=== PATIENT | female | born 1975 | race Caucasian/White ===

== ENCOUNTER 2016-10-16 12:50 | Emergency (ER) | payer MEDICAID ==
--- NOTE | 2016-10-16 13:10 | ER Document Report ---
ED Medical Screen (RME) - General Stated Complaint: COUGH/NAUSEA Notes: 4 days ago cough, fever, nausea, left lower chest pain worse with deep breath and cough h/o asthma, smoker I have greeted and performed a rapid initial assessment of this patient. A comprehensive ED assessment and evaluation of the patient, analysis of test results and completion of the medical decision making process will be conducted by additional ED providers. TRAVEL OUTSIDE OF THE [place] IN LAST 30 DAYS: No - Related Data Allergies/Adverse Reactions: cephalexin monohydrate [From Keflex] Allergy (Verified 10/16/16 13:09) Past Medical History Pulmonary Medical History: Reports: Hx Asthma, Hx Bronchitis, Hx Pneumonia Neurological Medical History: Reports: Hx Migraine Past Surgical History: Reports: Hx Hysterectomy - Immunizations Hx Diphtheria, Pertussis, Tetanus Vaccination: Yes
--- NOTE | 2016-10-16 13:56 | ER Document Report ---
ED Respiratory Problem - General Chief Complaint: Cough Stated Complaint: COUGH/NAUSEA Mode of Arrival: Ambulatory Information source: Patient TRAVEL OUTSIDE OF THE [place] IN LAST 30 DAYS: No - HPI Patient complains to provider of: Cough, Hurts to breath Onset: Other - 4 DAYS Duration: Continuous Quality of pain: Sharp Severity: Moderate Context: Smoker Short of Breath: Mild Chest pain/discomfort: Left - LOWER LATERAL, Worse with deep breaths Cough: Nonproductive Sputum amount: None Associated symptoms: Cough, Fever - SUBJECTIVE, Hurts to breathe Similar symptoms previously: Yes - USUALLY ONCE / YR (PNEUMONIA) Recently seen / treated by doctor: No - Related Data Allergies/Adverse Reactions: cephalexin monohydrate [From [employer]] Allergy (Verified 10/16/16 13:09) Past Medical History - General Information source: Patient - Social History Smoking Status: Current Every Day Smoker Chew tobacco use (# tins/day): No Smoking Education Provided: Yes - 1 MIN. Frequency of alcohol use: None Drug Abuse: None Lives with: Family Family History: Reviewed & Not Pertinent Patient has suicidal ideation: No Patient has homicidal ideation: No - Past Medical History Cardiac Medical History: Reports: None Pulmonary Medical History: Reports: Hx Asthma, Hx Bronchitis, Hx Pneumonia EENT Medical History: Reports: None Neurological Medical History: Reports: Hx Migraine Endocrine Medical History: Reports: None Renal/ Medical History: Reports: None. Denies: Hx Peritoneal Dialysis Malignancy Medical History: Reports: None GI Medical History: Reports: None Musculoskeltal Medical History: Reports None Psychiatric Medical History: Reports: None Past Surgical History: Reports: Hx Hysterectomy - Immunizations Hx Diphtheria, Pertussis, Tetanus Vaccination: Yes Review of Systems - Review of Systems Constitutional: No symptoms reported EENT: No symptoms reported Cardiovascular: See HPI Respiratory: See HPI Gastrointestinal: Vomiting - GAGS W/ COUGH Genitourinary: No symptoms reported Female Genitourinary: Post menopausal Musculoskeletal: No symptoms reported Skin: No symptoms reported Neurological/Psychological: No symptoms reported Physical Exam - Vital signs Vitals: Temp Pulse Resp BP Pulse Ox 98.8 F 97 16 119/74 99 10/16/16 13:11 10/16/16 13:11 10/16/16 13:11 10/16/16 13:11 10/16/16 13:11 Interpretation: Normal. No: Tachycardic, Hypoxic, Tachypneic, Febrile - General General appearance: Appears well, Alert In distress: None - HEENT Head: Normocephalic Eyes: Normal Conjunctiva: Normal Ears: Normal Nasal: Normal Mouth/Lips: Normal Mucous membranes: Normal - Respiratory Respiratory status: No respiratory distress Chest status: Nontender Breath sounds: Nonproductive cough, Rales - RARE, OVER AREA OF COMPLAINT. No: Wheezing Chest palpation: Normal - Cardiovascular Rhythm: Regular Heart sounds: Normal auscultation Murmur: No - Abdominal Inspection: Normal Distension: No distension - Back Back: Normal - Extremities General upper extremity: Normal inspection General lower extremity: Normal inspection - Neurological Neuro grossly intact: Yes Cognition: Normal Orientation: AAOx4 - Psychological Associated symptoms: Normal affect, Normal mood - Skin Skin Temperature: Warm Skin Moisture: Dry Skin Color: Normal Skin Turgor: Elastic Course - Vital Signs Vital signs: Temp Pulse Resp BP Pulse Ox 98.8 F 97 16 119/74 99 10/16/16 13:11 10/16/16 13:11 10/16/16 13:11 10/16/16 13:11 10/16/16 13:11 - Diagnostic Test Radiology reviewed: Image reviewed, Reports reviewed Radiology results interpreted by me: 10/16/16 14:07 FAINT PARENCHYMAL DENSITY IN AREA OF COMPLAINT. Discharge - Discharge Clinical Impression: Pneumonia Qualifiers: Pneumonia type: due to unspecified organism Laterality: left Lung location: lower lobe of lung Qualified Code(s): J18.1 - Lobar pneumonia, unspecified organism Condition: Stable Disposition: HOME, SELF-CARE Instructions: Pneumonia ([facility]), Stop Smoking ([facility]), Azithromycin ([facility]) Additional Instructions: REST, DRINK PLENTY OF FLUIDS. MEDS DIRECTED. STOP SMOKING. FOLLOW UP WITH YOUR PRIMARY CARE PROVIDER OR RETURN TO E.R. IF PROBLEMS. Prescriptions: Hydrocodone/Acetaminophen [Ruskin 5-325 mg Tablet] 1 tab PO Q4HP PRN #14 tablet PRN Reason: FOR PAIN OR COUGH Azithromycin [Zithromax 250 mg Tablet] 250 mg PO ASDIR PRN #6 tablet PRN Reason:
[2016-10-16 14:19] VITALS: BP 108/65
== END 2016-10-16 14:18 | disposition home or self-care (01) ==
LOC: ER 12:50
DX: J18.1 Lobar pneumonia, unspecified organism (principal); R50.9 Fever, unspecified; F17.200 Nicotine dependence, unspecified, uncomplicated
CPT/HCPCS: 71020; 99283

== ENCOUNTER 2016-12-05 16:30 | Emergency (ER) | payer OTHER ==
[2016-12-05] MEDS ORDERED: CYCLOBENZAPRINE HCL 10 MG TABLET PO ONE (17:01)
[2016-12-05] MEDS ORDERED: IBUPROFEN 800 MG TABLET PO ONE (17:01)
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
[2016-12-05 18:27] VITALS: BP 104/72
[2016-12-05] MEDS ORDERED: TRAMADOL HCL 50 MG TABLET PO ONE (18:46)
== END 2016-12-05 18:42 | disposition home or self-care (01) ==
LOC: ER 16:30
DX: M25.512 Pain in left shoulder (principal); V43.52XA Car driver injured in collision with other type car in traffic accident, initial encounter; F17.210 Nicotine dependence, cigarettes, uncomplicated; M51.36 Other intervertebral disc degeneration, lumbar region; M54.5 Low back pain; J45.909 Unspecified asthma, uncomplicated; Z87.81 Personal history of (healed) traumatic fracture
CPT/HCPCS: 72070; 99284

== ENCOUNTER 2017-03-24 23:46 | Emergency (ER) | payer OTHER ==
[2017-03-25] MEDS ORDERED: PREDNISONE 20 MG TABLET PO ONE (00:31)
[2017-03-25] MEDS ORDERED: HYDROCODONE/ACETAMINOPHEN 5-325 MG TABLET PO ONE (00:31)
--- NOTE | 2017-03-25 00:41 | ER Document Report ---
HPI - HPI Patient complains to provider of: cough, rib pain Pain Level: 5 Context: Patient is a 42-year-old female that comes emergency department for chief complaint of cough and congestion in her chest for 1 week, she reports yellow productive sputum. She denies fever. She states that she has had pneumonia before and she feels the same as when she had it last year. She reports a lot of pain in her ribs mainly on the left side with her cough. She denies chest pain otherwise. She denies vomiting, abdominal pain, shortness of breath. She continues to smoke daily. She reports past medical history of asthma. She denies any home medications. - REPRODUCTIVE LMP: na Reproductive: DENIES: : - DERM Skin Color: Normal Past Medical History - General Information source: Patient - Social History Smoking Status: Current Every Day Smoker Smoking Education Provided: Yes - <3 min Lives with: Family Family History: Reviewed & Not Pertinent Patient has suicidal ideation: No Patient has homicidal ideation: No Pulmonary Medical History: Reports: Hx Asthma, Hx Bronchitis, Hx Pneumonia Neurological Medical History: Reports: Hx Migraine Renal/ Medical History: Denies: Hx Peritoneal Dialysis Past Surgical History: Reports: Hx Hysterectomy - Immunizations Hx Diphtheria, Pertussis, Tetanus Vaccination: Yes Vertical Provider Document - CONSTITUTIONAL General Appearance: WD/WN, Mild Distress - patient has a painful cough, but otherwise she is in no distress - INFECTION CONTROL TRAVEL OUTSIDE OF THE [place] IN LAST 30 DAYS: No - HEENT HEENT: Atraumatic, Normal ENT Exam, Normocephalic - NECK Neck: Normal Inspection - RESPIRATORY Respiratory: Breath Sounds Normal, No Respiratory Distress, Other - decreased breath sounds and a few coarse sounds, no overt wheezing or rhonchi. negative: Chest Non-Tender - tender generally and mildly over left ribs generally O2 Sat by Pulse Oximetry: 98 - CARDIOVASCULAR Cardiovascular: Regular Rate, Regular Rhythm - GI/ABDOMEN Gastrointestinal: Abdomen Soft, Abdomen Non-Tender - BACK Back: Normal Inspection - MUSCULOSKELETAL/EXTREMETIES Musculoskeletal/Extremeties: MADIONICIO, FROM, Non-Tender - NEURO Level of Consciousness: Awake, Alert, Appropriate - DERM Integumentary: Warm, Dry, No Rash Course - Re-evaluation Re-evalutation: Some decreased breath sounds but no concerning findings on patient's respiratory evaluation. Occasional productive cough with some rib pain. Concerned because of patient's history of tobacco abuse and pneumonia. Patient given dose of azithromycin, prescription for this as well, patient on prednisone , giving albuterol inhaler. Chest x-ray does not show pneumonia, shows early emphysema changes. I discussed this at length with patient. Patient actually does appear rattled by this information, she states that she has already purchased items to help her quit and she will be quitting after this, her is in full support of this. I discussed follow-up, return precautions. Patient states understanding and agreement. - Vital Signs Vital signs: Temp Pulse Resp BP Pulse Ox 98.1 F 101 H 20 123/72 98 03/24/17 23:58 03/24/17 23:58 03/24/17 23:58 03/24/17 23:58 03/24/17 23:58 Discharge - Discharge Clinical Impression: Cough, Productive cough, Rib pain, Tobacco abuse Condition: Stable Disposition: HOME, SELF-CARE Additional Instructions: Your chest x-ray indicates early emphysema (a form of COPD). You must stop smoking. Take prednisone and azithromycin as directed. Use the inhaler as prescribed. Return to the ED for any concerning or worsening symptoms - difficulty breathing , fever, etc. Prescriptions: Albuterol Sulfate [Proair HFA Inhalation Aerosol 8.5 gm MDI] 2 puff IH Q4H PRN # 1 mdi PRN Reason: Azithromycin [Zithromax 250 mg Tablet] 250 mg PO ASDIR #4 tablet Prednisone 60 mg PO DAILY #15 tablet Forms: Smoking Cessation Education
--- NOTE | 2017-03-25 01:31 | RADIOLOGY REPORT (SQ) ---
EXAM DESCRIPTION: CHEST PA/LAT COMPLETED DATE/TIME: 03/25/2017 1:03 am REASON FOR STUDY: productive cough x 7 days, rib pain COMPARISON: 10/16/2016. EXAM PARAMETERS: NUMBER OF VIEWS: two views TECHNIQUE: Digital Frontal and Lateral radiographic views of the chest acquired. RADIATION DOSE: NA LIMITATIONS: none FINDINGS: LUNGS AND PLEURA: No opacities, masses or pneumothorax. No pleural effusion. Mild emphyse matous hyperinflation. MEDIASTINUM AND HILAR STRUCTURES: No masses or contour abnormalities. HEART AND VASCULAR STRUCTURES: Heart normal size. No evidence for failure. BONES: No acute findings. HARDWARE: None in the chest. OTHER: No other significant finding. IMPRESSION: No acute cardiopulmonary findings. TECHNICAL DOCUMENTATION: JOB ID: [id number] [employer]- All Rights Reserved
[2017-03-25] MEDS ORDERED: HYDROCODONE/ACETAMINOPHEN 5-325 MG 6 TAB/DSPK PO PRN (01:43)
[2017-03-25] MEDS ORDERED: AZITHROMYCIN 250 MG TABLET PO ONE (01:43)
[2017-03-25] MEDS ORDERED: ALBUTEROL SULFATE HFA (90 MCG/PUFF) 8 GM MDI (1 MDI/ER DISP) IH ONE (01:51)
[2017-03-25 02:16] VITALS: BP 116/78
== END 2017-03-25 02:17 | disposition home or self-care (01) ==
LOC: ER 23:46
DX: R05 Cough (principal); R07.81 Pleurodynia; J45.909 Unspecified asthma, uncomplicated; F17.200 Nicotine dependence, unspecified, uncomplicated; Z71.6 Tobacco abuse counseling; Z87.01 Personal history of pneumonia (recurrent)
CPT/HCPCS: 99283; 71020; J7512; J3490

== ENCOUNTER 2017-10-19 13:43 | Emergency (ER) | payer SELFPAY ==
--- NOTE | 2017-10-19 14:50 | RADIOLOGY REPORT (SQ) ---
EXAM DESCRIPTION: CHEST PA/LAT COMPLETED DATE/TIME: 10/19/2017 2:22 pm REASON FOR STUDY: cough congestion COMPARISON: Two-view chest 03/25/2017, 10/16/2016, 05/22/2014 EXAM PARAMETERS: NUMBER OF VIEWS: two views TECHNIQUE: Digital Frontal and Lateral radiographic views of the chest acquired. RADIATION DOSE: NA LIMITATIONS: none FINDINGS: LUNGS AND PLEURA: No opacities, masses or pneumothorax. No pleural effusion. MEDIASTINUM AND HILAR STRUCTURES: No masses or contour abnormalities. HEART AND VASCULAR STRUCTURES: Heart normal size. No evidence for failure. BONES: No acute findings. HARDWARE: None in the chest. OTHER: No other significant finding. IMPRESSION: NO SIGNIFICANT RADIOGRAPHIC FINDING IN THE CHEST. TECHNICAL DOCUMENTATION: JOB ID: [id number] [employer]- All Rights Reserved Reading location - IP/workstation name: [email or web address]
[2017-10-19 15:22] VITALS: BP 116/76
--- NOTE | 2017-10-19 15:27 | ER Document Report ---
ED Respiratory Problem - General Chief Complaint: Rib Pain Stated Complaint: RIB PAIN Time Seen by Provider: 10/19/17 13:54 Mode of Arrival: Ambulatory Information source: Patient Notes: 42-year-old female presented ED for complaint of cough cold congestion with left sided rib pain after coughing for several days. She states she did have rib pain on the right side of her chest but now it is on the left. She states she has been coughing for more than a week. States that a couple days ago her temp was 101.3 but now her temperature is normal. She is respirations are regular and unlabored. She states she wanted to have an x-ray for pneumonia because she has had it in the past as well as bronchitis. She states she is coughing so much that she is throwing up. She states she is having some yellow mucus when she coughs. She states she has asthma and has been using her inhaler more than normal. She states she is cut back on her smoking back to 5 cigarettes a day. TRAVEL OUTSIDE OF THE [place] IN LAST 30 DAYS: No - HPI Patient complains to provider of: Asthma, Cough Onset: Last week Duration: Intermittent episodes Initiating Event: URI Quality of pain: Achy Severity: Moderate Pain Level: 2 Context: Smoker Cough: Productive Sputum amount: Small Sputum color: Yellow Sputum consistency: Thick At home treatment: Bronchodilators Associated symptoms: Chest pain/discomfort - Mainly when she coughs, Congestion , Cough, Fever - She had fever a couple days ago none in the last couple days, PND, Runny nose, Sinus pain/pressure, Short of breath Similar symptoms previously: Yes Recently seen / treated by doctor: No - Related Data Allergies/Adverse Reactions: cephalexin monohydrate [From Keflex] Allergy (Verified 12/05/16 16:49) Past Medical History - General Information source: Patient - Social History Smoking Status: Current Every Day Smoker Cigarette use (# per day): Yes Chew tobacco use (# tins/day): No Smoking Education Provided: Yes Frequency of alcohol use: None Drug Abuse: None Occupation: none Lives with: Family Family History: Reviewed & Not Pertinent Patient has suicidal ideation: No Patient has homicidal ideation: No - Past Medical History Cardiac Medical History: Reports: None Pulmonary Medical History: Reports: Hx Asthma, Hx Bronchitis, Hx Pneumonia EENT Medical History: Reports: None Neurological Medical History: Reports: Hx Migraine Endocrine Medical History: Reports: None Renal/ Medical History: Reports: None Malignancy Medical History: Reports: None GI Medical History: Reports: None Musculoskeltal Medical History: Reports Hx Arthritis, Reports Hx Musculoskeletal Trauma Skin Medical History: Reports None Psychiatric Medical History: Reports: None Traumatic Medical History: Reports: Hx Fractures - Sacrum Infectious Medical History: Reports: None Past Surgical History: Reports: Hx Hysterectomy - Immunizations Hx Diphtheria, Pertussis, Tetanus Vaccination: Yes Review of Systems - Review of Systems Constitutional: Chills, Fever, Recent illness EENT: Nose congestion, Nose discharge, Sinus pressure, Sinus discharge Cardiovascular: No symptoms reported Respiratory: Cough, Sputum Gastrointestinal: No symptoms reported Genitourinary: No symptoms reported Female Genitourinary: No symptoms reported Musculoskeletal: No symptoms reported Skin: No symptoms reported Hematologic/Lymphatic: No symptoms reported Neurological/Psychological: No symptoms reported -: Yes All other systems reviewed and negative Physical Exam - Vital signs Vitals: Temp Pulse BP Pulse Ox 98.1 F 108 H 126/77 H 97 10/19/17 13:49 10/19/17 13:49 10/19/17 13:49 10/19/17 13:49 Interpretation: Normal - General General appearance: Appears well, Alert - HEENT Head: Normocephalic, Atraumatic Eyes: Normal Pupils: PERRL Ears: Normal External canal: Normal Tympanic membrane: Normal Sinus: Normal Nasal: Purulent discharge, Swelling Mouth/Lips: Normal Mucous membranes: Normal Pharynx: Post nasal drainage. No: Blood in hypopharynx, Erythema, Exudate, Peritonsillar abscess, Retropharyngeal abscess, Tonsillar hypertrophy, Uvular edema, Potential airway comprom. Neck: Normal - Respiratory Respiratory status: No respiratory distress Chest status: Nontender Breath sounds: Productive cough. No: Rales, Rhonchi, Stridor, Wheezing, Other Chest palpation: Normal - Cardiovascular Rhythm: Regular Heart sounds: Normal auscultation Murmur: No - Abdominal Inspection: Normal Distension: No distension Bowel sounds: Normal Tenderness: Nontender Organomegaly: No organomegaly - Back Back: Normal, Nontender - Extremities General upper extremity: Normal inspection, Nontender, Normal color, Normal ROM , Normal temperature General lower extremity: Normal inspection, Nontender, Normal color, Normal ROM , Normal temperature, Normal weight bearing. No: Lorna's sign - Neurological Neuro grossly intact: Yes Cognition: Normal Orientation: AAOx4 Randal Coma Scale Eye Opening: Spontaneous Randal Coma Scale Verbal: Oriented Randal Coma Scale Motor: Obeys Commands Randal Coma Scale Total: 15 Speech: Normal Motor strength normal: LUE, RUE, LLE, RLE Sensory: Normal - Psychological Associated symptoms: Normal affect, Normal mood - Skin Skin Temperature: Warm Skin Moisture: Dry Skin Color: Normal Course - Re-evaluation Re-evalutation: 10/19/17 15:30 Discussed x-ray with patient. Vital signs are stable after her x-ray. X-ray was negative for any acute changes. Patient does have signs and symptoms of upper respiratory infection. Patient was discharged home with recommendations for cough and cold medicine. Patient to follow-up with her primary doctor. - Vital Signs Vital signs: Temp Pulse Resp BP Pulse Ox 98.3 F 93 18 116/76 98 10/19/17 15:21 10/19/17 15:21 10/19/17 15:21 10/19/17 15:21 10/19/17 15:21 - Diagnostic Test Radiology reviewed: Image reviewed, Reports reviewed Discharge - Discharge Clinical Impression: URI (upper respiratory infection) Qualifiers: URI type: unspecified URI Qualified Code(s): J06.9 - Acute upper respiratory infection, unspecified Condition: Stable Disposition: HOME, SELF-CARE Instructions: Family Physicians / Practices Additional Instructions: UPPER RESPIRATORY ILLNESS: You have a viral infection of the respiratory passages -- a "cold." This common infection causes nasal congestion, drainage, and often sore throat and cough. It is highly contagious. The disease usually lasts about 10 to 14 days. There is no "cure" for the viral infection -- it must run its course. If there is a complication, such as bacterial infection in the nose, sinuses, middle ear, or bronchial tubes, antibiotics may be required. The antibiotics won't affect the virus. Drink plenty of fluids. A humidifier may help. An expectorant medication or decongestant may make you more comfortable. Use acetaminophen or ibuprofen for fever or aches. See the doctor if fever persists over two days, if there is any significant worsening of your symptoms, or if you simply fail to improve as expected. DECONGESTANT MEDICATION: A decongestant medicine has been suggested. Often this medicine is combined in the same tablet with an antihistamine or expectorant. This type of medicine is helpful in treating a bad cold or sinus condition, as well as in treatment of the nasal congestion of hay fever. It is not of much benefit for lung infections. Decongestant medicines are related to stimulants. They can cause an increase in blood pressure and heart rate. Persons with heart disease and high blood pressure should not take decongestants without discussing this with the physician. If you develop palpitations, chest pain, headache, or tremors, stop the medicine and consult your physician. COUGH-SUPPRESSANT & EXPECTORANT MEDICATION: You are to use a cough medication as needed for relief of symptoms. This medicine is a combination of an expectorant (to make the mucous thinner and more easily "coughed up") and a cough suppressant (to reduce the frequency of coughing). The cough-suppressant medicine is related to narcotics. You may experience mild nausea and sleepiness. Some patients who are very sensitive to narcotics may have stomach pain from this medicine. Taking the medicine with food reduces these side effects. Do not drive or work with machinery until you know how this medicine affects you. The expectorant should have no side effects. Iodine-containing expectorants (such as organidin) should not be taken by persons with active thyroid disease unless approved by your doctor. Call the doctor if you develop shortness of breath, hives, rash, itching, lightheadedness, or severe nausea and vomiting. USE OF ACETAMINOPHEN (Tylenol): Acetaminophen may be taken for pain relief or fever control. It's much safer than aspirin, offering a wider range of "safe" dosages. It is safe during . Some brand names are Tylenol, Panadol, Datril, Anacin 3, Tempra, and Liquiprin. Acetaminophen can be repeated every four hours. The following are maximum recommended dosages: >89 pounds or adults 650 mg to 900 mg Acetaminophen can be repeated every four hours. Maximum dose not to exceed 4000 mg a day. SMOKING: If you smoke, you should stop smoking. The tar and chemicals in cigarette smoke are harmful. Smoking has been shown to cause: emphysema chronic bronchitis lung cancer mouth and throat cancer stomach and pancreas cancer premature aging defects In addition, smoking increases ear and lung infections in children of smokers. You can use Claritin or Zyrtec, Sudafed 30 mg, Mucinex 600 mg, and Flonase 1 spray each nostril following directions on package. These will help with your cough cold congestion. Which will also help your discomfort from the cough. You can also use salt and soda solution to remove the mucus from the back your throat which will help with your cough. 1 quart of water 1 tablespoon of salt 1 teaspoon of baking soda Mixed 3 ingredients together and boil for 1 minute Placed in a covered quart jar Use 1/2 ounce of cold solution to gargle 3 times a day FOLLOW-UP CARE: If you have been referred to a physician for follow-up care, call the physician s office for an appointment as you were instructed or within the next two days. If you experience worsening or a significant change in your symptoms, notify the physician immediately or return to the Emergency Department at any time for re-evaluation. Forms: Smoking Cessation Education
== END 2017-10-19 15:28 | disposition home or self-care (01) ==
LOC: ER 13:43
DX: J06.9 Acute upper respiratory infection, unspecified (principal); R07.81 Pleurodynia; F17.210 Nicotine dependence, cigarettes, uncomplicated; Z90.710 Acquired absence of both cervix and uterus
CPT/HCPCS: 71046; 99283

== ENCOUNTER 2017-10-21 22:03 | Emergency (ER) | payer SELFPAY ==
--- NOTE | 2017-10-21 23:19 | ER Document Report ---
ED General - General Chief Complaint: Ear Pain Stated Complaint: EAR ACHE Time Seen by Provider: 10/21/17 23:18 Notes: Patient is a 42-year-old female without past medical history who presents with right ear pain. Patient states that she was in [employer], stuck her finger in her ear, moved it up and down quickly to try to scratch her ear and then had an abrupt onset of severe, constant, throbbing pain to the ear. She notes that the pain progressively worsened over the course of approximately 1-2 hours. She tried home remedies including peroxide into the year as well as multiple akkd-[id number] eardrops without any improvement of her pain. Nothing worsens her pain. She denies any history of similar the past. She denies any fever, nausea, vomiting or vertigo. She reports that she has had a small amount of blood ooze from the year. She has not seen her primary care doctor regarding today's concerns. TRAVEL OUTSIDE OF THE [place] IN LAST 30 DAYS: No - Related Data Allergies/Adverse Reactions: cephalexin monohydrate [From Amiigo] Allergy (Verified 12/05/16 16:49) Past Medical History - General Information source: Patient - Social History Smoking Status: Current Every Day Smoker Frequency of alcohol use: None Drug Abuse: None Lives with: Spouse/Significant other Family History: Reviewed & Not Pertinent Patient has suicidal ideation: No Patient has homicidal ideation: No Pulmonary Medical History: Reports: Hx Asthma, Hx Bronchitis, Hx Pneumonia Neurological Medical History: Reports: Hx Migraine Renal/ Medical History: Denies: Hx Peritoneal Dialysis Musculoskeltal Medical History: Reports Hx Arthritis, Reports Hx Musculoskeletal Trauma Traumatic Medical History: Reports: Hx Fractures - Sacrum Past Surgical History: Reports: Hx Hysterectomy - Immunizations Hx Diphtheria, Pertussis, Tetanus Vaccination: Yes Review of Systems - Review of Systems Notes: Constitutional: Negative for fever. HENT: Positive for right ear pain Eyes: Negative for visual changes. Cardiovascular: Negative for chest pain. Respiratory: Negative for shortness of breath. Gastrointestinal: Negative for abdominal pain, vomiting or diarrhea. Genitourinary: Negative for dysuria. Musculoskeletal: Negative for back pain. Skin: Negative for rash. Neurological: Negative for headaches, weakness or numbness. 10 point ROS negative except as marked above and in HPI. Physical Exam - Vital signs Vitals: Temp Pulse Resp BP Pulse Ox 98.5 F 96 20 139/78 H 97 10/21/17 22:12 10/21/17 22:12 10/21/17 22:12 10/21/17 22:12 10/21/17 22:12 Interpretation: Normal Notes: PHYSICAL EXAMINATION: GENERAL: Well-appearing, well-nourished and in no acute distress. HEAD: Atraumatic, normocephalic. EYES: Pupils equal round and reactive to light, extraocular movements intact, sclera anicteric, conjunctiva are normal. ENT: Right TM with very small perforation leaking a small amount of blood. No effusion. nares patent, oropharynx clear without exudates. Moist mucous membranes. NECK: Normal range of motion, supple without lymphadenopathy LUNGS: Breath sounds clear to auscultation bilaterally and equal. No wheezes rales or rhonchi. HEART: Regular rate and rhythm without murmurs ABDOMEN: Soft, nontender, normoactive bowel sounds. No guarding, no rebound. No masses appreciated. EXTREMITIES: Normal range of motion, no pitting or edema. No cyanosis. NEUROLOGICAL: No focal neurological deficits. Moves all extremities spontaneously and on command. PSYCH: Normal mood, normal affect. SKIN: Warm, Dry, normal turgor, no rashes or lesions noted. Course - Re-evaluation Re-evalutation: 10/21/17 23:40 Patient presents with signs and symptoms most consistent with a perforated right tympanic membrane. Patient has a small amount of bleeding from the ear. This occurred after she vigorously stuck her finger in her ear and shook it which was immediately followed by severe onset of pain and approximately 1 hour later with bleeding out of the ear - Vital Signs Vital signs: Temp Pulse Resp BP Pulse Ox 97.7 F 81 18 119/76 97 10/22/17 00:09 10/22/17 00:09 10/22/17 00:09 10/22/17 00:09 10/22/17 00:09 Discharge - Discharge Clinical Impression: Right ear pain Tympanic membrane perforation Qualifiers: Laterality: right Qualified Code(s): H72.91 - Unspecified perforation of tympanic membrane, right ear Condition: Good Disposition: HOME, SELF-CARE Additional Instructions: You have popped the eardrum on your right side. This is the cause of your pain. For your pain: Take ibuprofen 600 mg and acetaminophen 1000 mg every 6 hours together as needed for pain. Use topical lidocaine that she been sent home with directly into the ear as needed for severe pain not controlled by Tylenol or ibuprofen. Follow-up with ENT if you are not having improvement in her symptoms within the next several days to 1 week. Referrals: JOHNATHAN EASTMAN MD [ACTIVE STAFF] - Follow up in 1 week
[2017-10-21] MEDS ORDERED: LIDOCAINE 2% JELLY 5 ML TUBE TOP ONE (23:36)
[2017-10-21] MEDS ORDERED: CIPROFLOXACIN HCL/DEXAMETH OTIC DROP 7.5 ML AD ONE (23:37)
[2017-10-22 00:37] VITALS: BP 119/76
== END 2017-10-22 00:25 | disposition home or self-care (01) ==
LOC: ER 22:03
DX: S09.21XA Traumatic rupture of right ear drum, initial encounter (principal); H92.01 Otalgia, right ear; X58.XXXA Exposure to other specified factors, initial encounter; Y93.89 Activity, other specified; Y92.512 Supermarket, store or market as the place of occurrence of the external cause; F17.200 Nicotine dependence, unspecified, uncomplicated; J45.909 Unspecified asthma, uncomplicated; Z88.1 Allergy status to other antibiotic agents
CPT/HCPCS: 99282

== ENCOUNTER 2017-10-28 10:36 | Emergency (ER) | payer SELFPAY ==
--- NOTE | 2017-10-28 11:08 | ER Document Report ---
HPI - HPI Patient complains to provider of: Persistent right ear pain Onset: Other - October 21 Quality of pain: Achy Pain Level: 5 Context: 42-year-old female diagnosed with a perforated eardrum after itching in the inside of her ear on October 21 and then there was subsequent bleeding. She was seen in the emergency department by Dr. Bobo The pain has persisted and Tylenol Motrin is not relieving at the pain, radiates into her right jaw. No external ear swelling. no Fever. Associated Symptoms: None Exacerbated by: Denies Relieved by: Denies Similar symptoms previously: Yes Recently seen / treated by doctor: Yes - ROS ROS below otherwise negative: Yes Systems Reviewed and Negative: Yes All other systems reviewed and negative - EENT EENT: REPORTS: Ear Pain - REPRODUCTIVE Reproductive: DENIES: : Past Medical History - General Information source: Patient - Social History Smoking Status: Current Every Day Smoker Chew tobacco use (# tins/day): No Frequency of alcohol use: None Drug Abuse: None Lives with: Family Family History: Reviewed & Not Pertinent Patient has suicidal ideation: No Patient has homicidal ideation: No Pulmonary Medical History: Reports: Hx Asthma, Hx Bronchitis, Hx Pneumonia Neurological Medical History: Reports: Hx Migraine Renal/ Medical History: Denies: Hx Peritoneal Dialysis Musculoskeltal Medical History: Reports Hx Arthritis, Reports Hx Musculoskeletal Trauma Traumatic Medical History: Reports: Hx Fractures - Sacrum Past Surgical History: Reports: Hx Hysterectomy - Immunizations Hx Diphtheria, Pertussis, Tetanus Vaccination: Yes Vertical Provider Document - CONSTITUTIONAL Agree With Documented VS: Yes Exam Limitations: No Limitations - INFECTION CONTROL TRAVEL OUTSIDE OF THE [place] IN LAST 30 DAYS: No - HEENT HEENT: Normocephalic, Tympanic Membrane Red - purulent otitis media, no perforation seen. negative: Conjuctival Injection, Pharyngeal Erythema - NECK Neck: Supple. negative: Lymphadenopathy-Left, Lymphadenopathy-Right - RESPIRATORY Respiratory: Breath Sounds Normal, No Respiratory Distress - CARDIOVASCULAR Cardiovascular: Regular Rate, Regular Rhythm - MUSCULOSKELETAL/EXTREMETIES Musculoskeletal/Extremeties: MAEW - NEURO Level of Consciousness: Awake, Alert - DERM Integumentary: Warm, Dry, No Rash Course - Vital Signs Vital signs: Temp Pulse Resp BP Pulse Ox 98.2 F 97 16 122/84 99 10/28/17 10:42 10/28/17 10:42 10/28/17 10:42 10/28/17 10:42 10/28/17 10:42 Discharge - Discharge Clinical Impression: Right otitis media with effusion Condition: Good Disposition: HOME, SELF-CARE Instructions: Amoxicillin ([facility]), ENT, Otitis Media ([facility]) Additional Instructions: warm compress pain medication motrin amoxicillin see ENT doctor next week for follow up to er if worse Prescriptions: Hydrocodone Bit/Acetaminophen [Hydrocodon-Acetaminophen 5-325] 1 each PO Q4HP PRN #15 tablet PRN Reason: Ibuprofen [Motrin 600 mg Tablet] 600 mg PO Q8HP PRN #20 tablet PRN Reason: Amoxicillin Trihydrate [Amoxil 500 mg Capsule] 1,000 mg PO BID #30 cap
[2017-10-28] MEDS ORDERED: HYDROCODONE/ACETAMINOPHEN 5-325 MG TABLET PO ONE (11:15)
[2017-10-28 11:30] VITALS: BP 111/67
== END 2017-10-28 11:36 | disposition home or self-care (01) ==
LOC: ER 10:36
DX: H66.41 Suppurative otitis media, unspecified, right ear (principal); J45.909 Unspecified asthma, uncomplicated; F17.200 Nicotine dependence, unspecified, uncomplicated
CPT/HCPCS: 99282

== ENCOUNTER 2017-12-13 10:54 | Emergency (ER) | payer SELFPAY ==
--- NOTE | 2017-12-13 11:44 | ER Document Report ---
ED GI/ - General Chief Complaint: Vaginal Discharge Stated Complaint: VAGINAL DISCHARGE Time Seen by Provider: 12/13/17 11:33 Notes: Patient is a 42-year-old female patient complaining of vaginal discharge and odor 1 month. Patient has been using [id number] yeast medication with no improvement. Patient denies any urinary symptoms, fever, vaginal pain or abdominal pain. Patient denies any sexual activity 2 years TRAVEL OUTSIDE OF THE [place] IN LAST 30 DAYS: No - HPI Patient complains to provider of: Vaginal discharge Timing/Duration: Persistent Quality of pain: No pain Vaginal bleeding (Compared to normal period): None Sexual history: Inactive Associated symptoms: Odor, Vaginal discharge. denies: Dysuria, Fever, Nausea, Urinary hesitancy, Urinary frequency, Urinary retention, Urinary urgency Exacerbated by: Denies Relieved by: Denies - Related Data Allergies/Adverse Reactions: cephalexin monohydrate [From Keflex] Allergy (Verified 12/13/17 10:55) Past Medical History - General Information source: Patient - Social History Smoking Status: Current Every Day Smoker Chew tobacco use (# tins/day): No Frequency of alcohol use: None Drug Abuse: None Family History: Reviewed & Not Pertinent Patient has suicidal ideation: No Patient has homicidal ideation: No Pulmonary Medical History: Reports: Hx Asthma, Hx Bronchitis, Hx Pneumonia Neurological Medical History: Reports: Hx Migraine Renal/ Medical History: Denies: Hx Peritoneal Dialysis Musculoskeltal Medical History: Reports Hx Arthritis - osteo, Reports Hx Musculoskeletal Trauma Traumatic Medical History: Reports: Hx Fractures - Sacrum Past Surgical History: Reports: Hx Hysterectomy - Immunizations Hx Diphtheria, Pertussis, Tetanus Vaccination: Yes Review of Systems - Review of Systems Constitutional: No symptoms reported EENT: No symptoms reported Cardiovascular: No symptoms reported Respiratory: No symptoms reported Gastrointestinal: No symptoms reported Genitourinary: No symptoms reported Female Genitourinary: See HPI Musculoskeletal: No symptoms reported Skin: No symptoms reported Hematologic/Lymphatic: No symptoms reported Neurological/Psychological: No symptoms reported Physical Exam - Vital signs Vitals: Temp Pulse Resp BP Pulse Ox 98.9 F 94 16 121/79 99 12/13/17 11:09 12/13/17 11:09 12/13/17 11:09 12/13/17 11:09 12/13/17 11:09 Interpretation: Normal - General General appearance: Appears well, Alert - HEENT Head: Normocephalic, Atraumatic Eyes: Normal Pupils: PERRL - Respiratory Respiratory status: No respiratory distress Chest status: Nontender Breath sounds: Normal Chest palpation: Normal - Cardiovascular Rhythm: Regular Heart sounds: Normal auscultation Murmur: No - Abdominal Inspection: Normal Distension: No distension Bowel sounds: Normal Tenderness: Nontender Organomegaly: No organomegaly - Genitourinary External exam: Normal Speculum exam: Vaginal discharge - thick/ greenish/white Vaginal bleeding: None Bimanuel exam: Normal - Back Back: Normal, Nontender - Extremities General upper extremity: Normal inspection, Nontender, Normal color, Normal ROM , Normal temperature General lower extremity: Normal inspection, Nontender, Normal color, Normal ROM , Normal temperature, Normal weight bearing. No: Lorna's sign - Neurological Neuro grossly intact: Yes Cognition: Normal Orientation: AAOx4 [place] Coma Scale Eye Opening: Spontaneous Randal Coma Scale Verbal: Oriented [place] Coma Scale Motor: Obeys Commands [place] Coma Scale Total: 15 Speech: Normal Motor strength normal: LUE, RUE, LLE, RLE Sensory: Normal - Psychological Associated symptoms: Normal affect, Normal mood - Skin Skin Temperature: Warm Skin Moisture: Dry Skin Color: Normal Course - Re-evaluation Re-evalutation: 12/13/17 12:45 After performing a Medical Screening Examination, I estimate there is LOW risk for ACUTE APPENDICITIS, BOWEL OBSTRUCTION, ACUTE CHOLECYSTITIS, PERFORATED DIVERTICULITIS, INCARCERATED HERNIA, PANCREATITIS, PELVIC INFLAMMATORY DISEASE, PERFORATED ULCER, ECTOPIC , or TUBO-OVARIAN ABSCESS, thus I consider the discharge disposition reasonable. Also, there is no evidence or peritonitis , sepsis, or toxicity. I have reevaluated this patient multiple times and no significant life threatening changes are noted. The patient and I have discussed the diagnosis and risks, and we agree with discharging home with close follow-up with the understanding that symptoms and presentations can change. We also discussed returning to the Emergency Department immediately if new or worsening symptoms occur. We have discussed the symptoms which are most concerning (e.g., bloody stool, fever, changing or worsening pain, vomiting) that necessitate immediate return. Wet mount is positive for bacterial vaginosis and trichomonas. These results were reviewed with the patient. - Vital Signs Vital signs: Temp Pulse Resp BP Pulse Ox 97.9 F 82 16 111/76 100 12/13/17 12:12 12/13/17 12:12 12/13/17 12:12 12/13/17 12:12 12/13/17 12:12 Discharge - Discharge Clinical Impression: Bacterial vaginosis, Trichimoniasis Condition: Stable Disposition: HOME, SELF-CARE Instructions: Vaginosis, Bacterial ([facility]), Trichomonas Infection ([facility]), Antibiotic Therapy ([facility]) Additional Instructions: I am treating you for bacterial vaginosis and trichomonas Take all antibiotics as prescribed Any sexual partners need treatment for trichomonas Follow-up with your primary care or [facility] if symptoms persist Prescriptions: Metronidazole [Flagyl 500 mg Tablet] 500 mg PO BID #14 tablet
[2017-12-13 11:53] LABS: BACTERIA (WET MOUNT) 4+ BACTERIA SEEN; EPITHELIALS (WET MOUNT) 4+ EPITHELIALS SEEN; RBCS (WET MOUNT) FEW RBCS SEEN; T.VAGINALIS (WET MOUNT) TRICHOMONAS SEEN; WBCS (WET MOUNT) 2+ WBCS SEEN; YEAST (WET MOUNT) NO YEAST SEEN
[2017-12-13 12:17] VITALS: BP 111/76
[2017-12-13 13:26] LABS: CHLAM PCR NOT DETECTED (NOT DETECT); GON PCR NOT DETECTED (NOT DETECT)
== END 2017-12-13 12:50 | disposition home or self-care (01) ==
LOC: ER 10:54
DX: N76.0 Acute vaginitis (principal); B96.89 Other specified bacterial agents as the cause of diseases classified elsewhere; A59.00 Urogenital trichomoniasis, unspecified; F17.200 Nicotine dependence, unspecified, uncomplicated; J45.909 Unspecified asthma, uncomplicated
CPT/HCPCS: 87210; 87491; 87591; 99283

== ENCOUNTER 2018-10-25 20:19 | Emergency (ER) | payer SELFPAY ==
[2018-10-25 20:40] VITALS: BP 115/74
== END 2018-10-25 22:10 | disposition left against medical advice (07) ==
LOC: ER 20:19
DX: Z53.21 Procedure and treatment not carried out due to patient leaving prior to being seen by health care provider (principal); M25.562 Pain in left knee

== ENCOUNTER 2018-12-23 19:06 | Emergency (ER) | payer SELFPAY ==
[2018-12-23 19:27] VITALS: BP 126/88
[2018-12-23] MEDS ORDERED: DIPHENHYDRAMINE HCL 50 MG/ML VIAL IV ONE (19:58)
[2018-12-23] MEDS ORDERED: KETOROLAC TROMETHAMINE INJ/PF 30 MG/1 ML SDV IV ONE (19:58)
[2018-12-23] MEDS ORDERED: PROCHLORPERAZINE EDISYLATE INJ 10 MG/2 ML VIAL IV ONE (19:58)
--- NOTE | 2018-12-23 20:02 | ER Document Report ---
ED Medical Screen (RME) - General Chief Complaint: Headache Stated Complaint: MIGRAINE Time Seen by Provider: 12/23/18 19:53 TRAVEL OUTSIDE OF THE [place] IN LAST 30 DAYS: No - HPI Notes: 12/23/18 19:58 Patient is a 43-year-old female who presents the emergency department complaining of tension versus migraine headaches for the past 3 years. Patient states that she has these headaches "24 hours a day, 7 days a week." Patient states that she has never been evaluated for headaches and has never had any imaging performed. She does have associated light sensitivity and nausea. Patient describes her headaches as severe, but at the same intensity each time. This is another headache that she is having that is indifferent from previous headaches. She is still able to eat and drink without difficulty. She is urinating normally and having normal bowel movements. Denies any fever, head injury, neck pain, changes in vision/speech/mentation/hearing, URI, sore throat, chest pain, palpitations, syncope, cough, shortness of breath, wheeze, dyspnea, abdominal pain, nausea/vomiting/diarrhea, urinary retention, dysuria, hematuria, loss of control of bowel or bladder, numbness/tingling, saddle anesthesia, muscle paralysis/weakness, or rash. I have treated and performed a rapid initial assessment of this patient. A comprehensive ED assessment and evaluation of the patient, analysis of test results and completion of medical decision making process will be conducted by additional ED providers. PHYSICAL EXAMINATION: GENERAL: Well-appearing, well-nourished and in no acute distress. A&Ox4. A nswers questions appropriately. HEAD: Atraumatic, normocephalic. Non-tender. EYES: Pupils equal round and reactive to light, extraocular movements intact, sclera anicteric, conjunctiva are normal. No nystagmus. NECK: Normal range of motion, supple without lymphadenopathy. No rigidity/meningismus. No midline tenderness. LUNGS: Breath sounds clear to auscultation bilaterally and equal. No wheezes rales or rhonchi. HEART: Regular rate and rhythm without murmurs, rubs, gallops. Musculoskeletal: Ext's b/l: FROM to passive/active. Strength 5+/5. No deficits noted. No bony tenderness of extremities. Extremities: No cyanosis, clubbing, or edema b/l. Peripheral pulses 2+. Capillary refill less than 2 seconds. NEUROLOGICAL: NIH 0. GCS 15. Cranial nerves grossly intact. Normal speech, normal gait. Normal sensory, motor exams. Reflexes 2+ b/l. KAYKAY's negative. Pronator drift negative. Heel/woodruff, finger/nose wnl. Romberg neg. PSYCH: Normal mood, normal affect. SKIN: Warm, Dry, normal turgor, no rashes or lesions noted. - Related Data Allergies/Adverse Reactions: cephalexin monohydrate [From Keflex] Allergy (Verified 12/23/18 19:07) Past Medical History - Social History Chew tobacco use (# tins/day): No Frequency of alcohol use: None Drug Abuse: None Pulmonary Medical History: Reports: Hx Asthma, Hx Bronchitis, Hx Pneumonia Neurological Medical History: Reports: Hx Migraine Renal/ Medical History: Denies: Hx Peritoneal Dialysis Musculoskeltal Medical History: Reports Hx Arthritis - osteo, Reports Hx Musculoskeletal Trauma Traumatic Medical History: Reports: Hx Fractures - Sacrum Past Surgical History: Reports: Hx Hysterectomy - Immunizations Hx Diphtheria, Pertussis, Tetanus Vaccination: Yes Physical Exam - Vital signs Vitals: Temp Pulse Resp BP Pulse Ox 98.4 F 95 20 126/88 H 97 12/23/18 19:26 12/23/18 19:26 12/23/18 19:26 12/23/18 19:26 12/23/18 19:26 Course - Vital Signs Vital signs: Temp Pulse Resp BP Pulse Ox 98.4 F 95 20 126/88 H 97 12/23/18 19:26 12/23/18 19:26 12/23/18 19:26 12/23/18 19:26 12/23/18 19:26
--- NOTE | 2018-12-23 21:33 | RADIOLOGY REPORT (SQ) ---
EXAM DESCRIPTION: CT HEAD WITHOUT IV CONTRAST COMPLETED DATE/TME: 12/23/2018 19:57 CLINICAL HISTORY: 43 years, Female, headache COMPARISON: None. TECHNIQUE: Noncontrast CT of the head was performed. Coronal and sagittal reformations were created. Images stored on PACS. All CT scanners at this facility use dose modulation, iterative reconstruction, and/or weight based dosing when appropriate to reduce radiation dose to as low as reasonably achievable (ALARA). [facility]: Dose Right [facility]: CareDose [facility]: Dose Right [facility]: Teradose 4D [facility]: [employer] LIMITATIONS: None. FINDINGS: Brain parenchyma is normal in attenuation. No acute intracranial hemorrhage, mass effect, or extra-axial fluid is seen. The ventricles, sulci, and basilar cisterns are normal in size and configuration. Globes and orbits are normal. Rounded opacity is noted about the inferior aspect of the right maxillary antrum, indicating a mucous attention cyst or inflammatory polyp. There are no depressed skull fractures. IMPRESSION: No acute intracranial abnormality. TECHNICAL DOCUMENTATION: Quality ID # [id number]: Final reports with documentation of one or more dose reduction techniques (e.g., Automated exposure control, adjustment of the mA and/or kV according to patient size, use of iterative reconstruction technique) copyright 2010 [employer]- All Rights Reserved
--- NOTE | 2018-12-23 21:46 | ER Document Report ---
ED Headache - General Chief Complaint: Headache Stated Complaint: MIGRAINE Time Seen by Provider: 12/23/18 19:53 Notes: Patient is a 43-year-old female that comes to the emergency department chief complaint of a headache. She states the headache starts in the back of her head, wraps around, is throbbing. She states intermittently it is worse and makes her feel like she has blurry vision and nausea. She denies of any current visual changes, she denies current nausea or vomiting today. She denies fever/chills, injury. She denies any current symptoms actually she states that she was treated for headache from the triage medications and this completely resolved her headache. She smokes, she has a history of asthma and hysterectomy, denies medical history otherwise. She has never had formal treatment or work-up for migraines. She states her headaches have been going on every day for the past 3 years. TRAVEL OUTSIDE OF THE [place] IN LAST 30 DAYS: No - Related Data Allergies/Adverse Reactions: cephalexin monohydrate [From Frograms] Allergy (Verified 12/23/18 19:07) Past Medical History - General Information source: Patient - Social History Smoking Status: Current Every Day Smoker Chew tobacco use (# tins/day): No Smoking Education Provided: Yes - <3 min Frequency of alcohol use: None Drug Abuse: None Lives with: Family Family History: Reviewed & Not Pertinent Patient has suicidal ideation: No Patient has homicidal ideation: No Pulmonary Medical History: Reports: Hx Asthma, Hx Bronchitis, Hx Pneumonia Neurological Medical History: Reports: Hx Migraine Renal/ Medical History: Denies: Hx Peritoneal Dialysis Musculoskeletal Medical History: Reports Hx Arthritis - osteo, Reports Hx Musculoskeletal Trauma Traumatic Medical History: Reports: Hx Fractures - Sacrum Past Surgical History: Reports: Hx Hysterectomy - Immunizations Immunizations up to date: Yes Hx Diphtheria, Pertussis, Tetanus Vaccination: Yes Review of Systems - Review of Systems Constitutional: No symptoms reported EENT: No symptoms reported Cardiovascular: No symptoms reported Respiratory: No symptoms reported Gastrointestinal: See HPI Genitourinary: No symptoms reported Female Genitourinary: No symptoms reported Musculoskeletal: See HPI Skin: No symptoms reported Hematologic/Lymphatic: No symptoms reported Neurological/Psychological: See HPI Physical Exam - Vital signs Vitals: Temp Pulse Resp BP Pulse Ox 98.4 F 95 20 126/88 H 97 12/23/18 19:12/23/18 19:12/23/18 19:12/23/18 19:12/23/18 19:26 - Notes Notes: GENERAL: Alert, interacts well. No acute distress. HEAD: Normocephalic, atraumatic. EYES: Pupils equal, round, and reactive to light. Extraocular movements intact. ENT: Oral mucosa moist, tongue midline. Oropharynx unremarkable. Airway patent. NECK: Full range of motion. Supple. Trachea midline. LUNGS: Clear to auscultation bilaterally, no wheezes, rales, or rhonchi. No respiratory distress. HEART: Regular rate and rhythm. No murmur ABDOMEN: Soft, non-tender. Non-distended. Bowel sounds present in all 4 quadrants. GENITOURINARY: Deferred EXTREMITIES: Moves all 4 extremities spontaneously. No edema, normal radial and dorsalis pedis pulses bilaterally. No cyanosis. BACK: no cervical, thoracic, lumbar midline tenderness. There is mild bilateral paracervical tenderness but no range of motion abnormality or noted trapezius muscle tenderness on exam. No signs of trauma. No saddle anesthesia, normal distal neurovascular exam. Moves all extremities in full range of motion. NEUROLOGICAL: Alert and oriented x3. Normal speech. Cranial nerves II through XII grossly intact. PSYCH: Normal affect, normal mood. SKIN: Warm, dry, normal turgor. No rashes or lesions noted. Course - Re-evaluation Re-evalutation: When I evaluate the patient, she had already been treated in triage for headache through the IV, she states her headache is completely gone, she is very satisfied and already requesting to leave. Her neurological exam is normal. She does not report any concerning change from her baseline, she does have mild paracervical muscular tenderness on the evaluation but no range of motion abnormality. I did review the CAT scan performed in triage, this shows no intracranial mass or acute finding. I did provide patient with a copy of her report on her request. We will treat for what I suspect is tension headaches with occasional trigger migraines with muscle relaxer, Fioricet, I recommended primary care follow-up, I recommended smoking cessation which was discussed, I discussed return precautions in detail. Patient states understanding and agreement. - Vital Signs Vital signs: Temp Pulse Resp BP Pulse Ox 98.4 F 95 20 126/88 H 97 12/23/18 19:26 12/23/18 19:26 12/23/18 19:26 12/23/18 19:12/23/18 19:26 Discharge - Discharge Clinical Impression: Headache Qualifiers: Headache type: unspecified Headache chronicity pattern: acute headache Intractability: not intractable Qualified Code(s): R51 - Headache Condition: Stable Disposition: HOME, SELF-CARE Additional Instructions: Your evaluation, symptoms, and resolution with treatment are suggestive of tension headaches with triggered migraines. The CAT scan performed today shows no concerning abnormalities. You can take the prescribed medication if needed for headaches in the future, you have been prescribed a muscle relaxer, I also recommend heat, gentle stretches, [id number] anti-inflammatories for your neck. Follow-up with primary care for additional evaluation and management of headaches. Return if you worsen including returned or severe headache, vomiting, fever, or any other concerning or worsening symptoms. Prescriptions: Butalb/Acetaminophen/Caffeine [Fioricet (50-325-40 mg) Tablet] 1 tab PO Q4HP PRN #30 tab PRN Reason: Methocarbamol [Robaxin 500 mg Tablet] 500 mg PO QID PRN #20 tablet PRN Reason: Forms: Smoking Cessation Education
== END 2018-12-23 22:10 | disposition home or self-care (01) ==
LOC: ER 19:06
DX: R51 Headache (principal); F17.200 Nicotine dependence, unspecified, uncomplicated; Z90.710 Acquired absence of both cervix and uterus
CPT/HCPCS: 99284; 96374; 96375; 70450; J1200; J1885; J0780

== ENCOUNTER 2019-02-24 20:05 | Emergency (ER) | payer SELFPAY ==
[2019-02-24 20:26] VITALS: BP 123/77
== END 2019-02-24 22:20 | disposition left against medical advice (07) ==
LOC: ER 20:05
DX: Z53.21 Procedure and treatment not carried out due to patient leaving prior to being seen by health care provider (principal)